=== PATIENT | male | born 1985 | race African-American/Black ===

== ENCOUNTER 2023-05-29 08:22 | Emergency (ER) | payer OTHER, SELFPAY ==
[2023-05-29] MEDS ORDERED: Bacitracin 1 PK ONE (09:03)
[2023-05-29] MEDS ORDERED: Boostrix 0.5 ML (Tdap) VIAL (>/=7 yrs of age) ONE (09:03)
== END 2023-05-29 09:29 | disposition home or self-care (01) ==
LOC: NAV ERS 08:22
DX: S80.12XA Contusion of left lower leg, initial encounter (principal); F17.210 Nicotine dependence, cigarettes, uncomplicated; W22.8XXA Striking against or struck by other objects, initial encounter
CPT/HCPCS: 90471; 90715

== ENCOUNTER 2023-08-11 15:30 | Emergency (ER) | payer OTHER ==
[2023-08-11] MEDS ORDERED: Ketorolac Tromethamine 30 MG/ML VIAL ONE (16:00)
== END 2023-08-11 17:12 | disposition home or self-care (01) ==
LOC: NAV ERS 15:30
DX: S22.31XA Fracture of one rib, right side, initial encounter for closed fracture (principal); F17.210 Nicotine dependence, cigarettes, uncomplicated; W10.9XXA Fall (on) (from) unspecified stairs and steps, initial encounter
CPT/HCPCS: 96372; J1885

== ENCOUNTER 2023-09-27 06:51 | Emergency (ER) | payer BC, OTHER ==
[2023-09-27] MEDS ORDERED: Ketorolac Tromethamine 60 MG/2 ML VIAL ONE (07:24)
== END 2023-09-27 07:44 | disposition home or self-care (01) ==
LOC: NAV ERS 06:51
DX: M25.512 Pain in left shoulder (principal); F17.210 Nicotine dependence, cigarettes, uncomplicated
CPT/HCPCS: 96372; 99283; J1885